=== PATIENT | female | born 1995 | race Two or more races ===

== ENCOUNTER 2025-07-29 19:17 | Emergency (ER) | payer MEDICAID, OTHER ==
[~2025-07-29] VITALS: Ht 157.5 cm; Wt 75.3 kg
[2025-07-29 19:20] VITALS: BP 133/85; PULSE 84; RESP 18; TEMP 98.3; O2SAT 98
--- NOTE | 2025-07-29 20:07 | ED.PDOC ---
[employer] HPI Comments 29 y/o F, presents to the ED for CC of pelvic pain. Patient states, she has been experiencing vaginal pain with associated vulva swelling onset, today (07/29/25). Patient reports, to have examined her vaginal area and to have felt the strings of her IUD outside her vaginal canal; endorses IUD being dislodged in the past. Patient denies fever, chills, or abnormal vaginal discharge. Chief Complaint: Pelvic Pain Time Seen by MD: 20:00 Reviewed Notes: Nurses Notes, Medications, Allergies Allergies: Coded Allergies: NO KNOWN ALLERGIES (Unverified , 07/29/25) Information Source: Patient Mode of Arrival: Ambulatory Timing: Days Severity: Moderate Vaginal Discharge: None Vaginal Lesions: None Vaginal Mass: None Last Consensual [place]: Unknown Control: Other (IUD) Associated Signs and Symptoms: Other (VAGINAL PAIN) Past Medical History PAST MEDICAL HISTORY: Denies Surgical History: Denies all surgeries FOREST SCIENTIST History: Denies all FOREST SCIENTIST Hx Family History Family History: Unknown Social History Smoker: Non-Smoker Alcohol: Denies ETOH Use Drugs: Denies Drug Use Lives In: Home Constitutional: denies: chills, diaphoresis, fatigue, fever, malaise, sweats, weakness, others EENTM: denies: blurred vision, double vision, ear bleeding, ear discharge, ear drainage, ear pain, ear ringing, eye pain, eye redness, hearing loss, mouth pain, mouth swelling, nasal discharge, nose bleeding, nose congestion, nose pain, photophobia, tearing, throat pain, throat swelling, voice changes, others Respiratory: denies: cough, hemoptysis, orthopnea, SOB at rest, shortness of breath, SOB with excertion, stridor, wheezing, others Cardiovascular: denies: chest pain, dizzy spells, diaphoresis, Dyspnea on exertion, edema, irregular heart beat, left arm pain, lightheadedness, palpitations, PND, syncope, others Gastrointestinal: denies: abdomen distended, abdominal pain, blood streaked bowels, constipated, diarrhea, dysphagia, difficulty swallowing, hematemesis, melena, nausea, poor appetite, poor fluid intake, rectal bleeding, rectal pain, vomiting, others Genitourinary: reports: others (vaginal swelling, vagina pressure); denies: abnormal vagina bleeding, burning, dyspareunia, dysuria, flank pain, frequency, hematuria, incontinence, pain, , vagina discharge, urgency Neurological: denies: dizziness, fainting, headache, left sided numbness, left sided weakness, numbness, paresthesia, pre-existing deficit, right sided numbness, right sided weakness, seizure, speech problems, tingling, tremors, weakness, others Musculoskeletal: denies: back pain, gout, joint pain, joint swelling, muscle pain, muscle stiffness, neck pain, others Integumetry: denies: bruises, change in color, change in hair/nails, dryness, laceration, lesions, lumps, rash, wounds, others Allergic/Immunocompromised: denies: Difficulty Healing, Frequent Infections, Hives, Itching, others Hematologic/Lymphatic: denies: anemia, blood clots, easy bleeding, easy bruising, swollen glands, others Endocrine: denies: excessive hunger, excessive sweating, excessive thirst, excessive urination, flushing, intolerance to cold, intolerance to heat, unexplained weight gain, unexplained weight loss, others Psychiatric: denies: anxiety, bipolar disorder, depression, hopeless, panic disorder, schizophrenia, sleepless, suicidal, others All Other Systems: Reviewed and Negative Physical Exam General Appearance: No Apparent Distress, Normal HEENT: Normal ENT Inspection, Pharynx Normal Neck: Full Range of Motion, Non-Tender, Normal, Normal Inspection Respiratory: Chest Non-Tender, Lungs Clear, No Accessory Muscle Use, No R espiratory Distress, Normal Breath Sounds Cardiovascular: No Edema, No Murmur, No Gallop, Normal Peripheral Pulses, Regular Rate/Rhythm Breast Exam: Deferred Gastrointestinal: No Organomegaly, Non Tender, No Pulsatile Mass, Normal Bowel Sounds, Soft Genitalia: Deferred Pelvic: Normal External Exam, Other (IUD STRINGS OUT OF VAGINAL OS) Rectal: Deferred Extremities: No calf tenderness, Normal capillary refill, Normal inspection, Normal range of motion, Non-tender, No pedal edema Musculoskeletal : Apperance: Normal 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 Was a procedure done?: No Differential Diagnosis (FOREST SCIENTIST) Mass / Lesion: PID Vaginal Discharge: Vaginitis - Bacterial X-Ray, Labs, Meds, VS Vital Signs Date Time Temp Pulse Resp B/P (MAP) Pulse Ox O2 Delivery O2 Flow Rate FiO2 07/29/25 19:20 98.3 84 18 133/85 (101) 98 98.3 07/29/25 19:19 98.3 84 18 133/85 98 98.3 Lab Test 07/29/25 20:17 Range/Units Urine Color Colorless Yellow Urine Clarity Clear Clear Urine pH 7.5 5.0-9.0 Urine Specific [place] 1.009 1.001-1.035 Urine Protein Negative Negative Urine Ketones Negative Negative Urine Blood Negative Negative /uL Urine Nitrite Negative Negative Urine Bilirubin Negative Negative Urine Urobilinogen Normal Negative mg/dL Urine Leukocyte Esterase Negative Negative /uL Urine RBC 1 0 - 4 /hpf Urine Microscopic WBC < 1 0-5 /HPF Urine Squamous Epithelial Cells Few <5 /hpf Urine Bacteria None seen None Seen /hpf Urine Glucose Normal Normal mg/dL Urine Test Negative Negative Time of 1ST Reevaluation: 20:30 Reevaluation 1ST: Unchanged Patient Education/Counseling: Diagnosis, Treatment Family Education/Counseling: No Family Present Comments Patient reportedly is five weeks and is here for pelvic pain after sexual intercourse. She does not have any vaginal bleeding or discharge. Examination shows mild suprapubic tenderness. Her urinalysis is negative and test is negative. Patient is stable for discharge to follow up with her primary doctor. Additional Information The following tests were ordered, and results were reviewed by me: test, UA I discussed treatments and results with medical personnel and: PATIENT Comprehensive systems review obtained and negative except for what is stated in the HPI. Departure 1 Departure Time of Disposition: 22:49 Impression: Primary Impression: Feared condition not demonstrated Additional Impression: Pseudocyesis Disposition: 01 HOME / SELF CARE / HOMELESS Condition: Good Discharged With: Self Critical Care Note Critical Care Time?: No Stability Stability form required: No Heart Score Heart Score: Heart Score Response (Comments) Value History N/A 0 EKG N/A 0 Age N/A 0 Risk Factors N/A 0 Troponin N/A 0 Total 0 I personally scribed for OSMEL FOLWERS MD ([email or web address]) on 07/29/25 at 20:07. Electronically submitted by Dolores San ([email or web address]). I personally scribed for OSMEL FLOWERS MD ([facility]) on 07/29/25 at 20:31. Electronically submitted by Dolores San ([email or web address]). I personally scribed for OSMEL FLOWERS MD ([facility]) on 07/29/25 at 20:45. Electronically submitted by Dolores San ([email or web address]). I personally scribed for [facility]EL FLOWERS [facility] ([facility] on 07/29/25 at 20:45. Electronically submitted by Dolores San ([email or web address]). OSMEL FLOWERS MD Jul 29, 2025 20:07
[2025-07-29 21:09] LABS: Urine Protein, UAD Negative (Negative)
== END 2025-07-29 23:08 | disposition home or self-care (01) ==
LOC: ER 19:17
DX: F45.8 Other somatoform disorders (principal); Z71.1 Person with feared health complaint in whom no diagnosis is made
CPT/HCPCS: 81001; 81025